=== PATIENT | female | born 1975 | race American Indian/Alaskan Native ===

== ENCOUNTER 2019-07-20 09:17 | Emergency (ER) | payer SELFPAY ==
--- NOTE | 2019-07-20 10:25 | Emergency Department Report ---
ED Shortness of Breath HPI - General Chief Complaint: Back Pain/Injury Stated Complaint: PAIN IN CALVES/COUGHING Time Seen by Provider: 07/20/19 10:09 Source: patient Mode of arrival: Ambulatory Limitations: No Limitations - History of Present Illness Initial Comments: 43-year-old -Welsh female with history of PE and hypertension complains of cough 1 month and lower leg pain and shortness of breath for the past 3-4 days. Patient denies any recent long travel, but admits to smoking and oral contraceptives. She states the shortness of breath worsens with ambulation and lying down. Leg pain also worsens with ambulation. She denies any chest pain, but does admit to painful breathing. MD Complaint: shortness of breath, cough -: Sudden, days(s) Quality: sharp Consistency: intermittent Improves With: rest Worsens With: lying flat, exertion Known History Of: DVT Treatments Prior to Arrival: none - Related Data Home Oxygen Therapy: No Allergies Allergy/AdvReac Type Severity Reaction Status Date / Time No Known Allergies Allergy Unverified 07/20/19 09:20 ED Review of Systems ROS: Stated complaint: PAIN IN CALVES/COUGHING Other details as noted in HPI Constitutional: denies: chills, fever ENT: denies: throat pain, congestion Respiratory: cough, orthopnea, shortness of breath Cardiovascular: dyspnea on exertion, orthopnea. denies: chest pain, palpitations, edema, syncope Endocrine: denies: excessive sweating Gastrointestinal: denies: abdominal pain, nausea, vomiting Musculoskeletal: denies: back pain Skin: denies: rash, lesions Neurological: denies: headache, weakness ED Past Medical Hx - Past Medical History Previous Medical History?: Yes Hx Hypertension: Yes Hx Pulmonary Embolism: Yes - Surgical History Past Surgical History?: Yes Additional Surgical History: C section - Social History Smoking Status: Current Every Day Smoker Substance Use Type: Alcohol ED Physical Exam - General Limitations: No Limitations General appearance: alert, in no apparent distress - Head Head exam: Present: atraumatic, normocephalic - Eye Eye exam: Present: normal appearance - ENT ENT exam: Present: mucous membranes moist - Neck Neck exam: Present: normal inspection - Respiratory Respiratory exam: Present: normal lung sounds bilaterally. Absent: respiratory distress, wheezes, rales, rhonchi, chest wall tenderness - Cardiovascular Cardiovascular Exam: Present: regular rate, normal rhythm, normal heart sounds. Absent: systolic murmur, diastolic murmur, rubs, gallop - GI/Abdominal GI/Abdominal exam: Present: soft, normal bowel sounds - Extremities Exam Extremities exam: Present: normal inspection, full ROM, calf tenderness (mild bilateral, left worse than right ). Absent: pedal edema, joint swelling - Back Exam Back exam: Present: normal inspection - Neurological Exam Neurological exam: Present: alert, oriented X3 - Psychiatric Psychiatric exam: Present: normal affect, normal mood - Skin Skin exam: Present: warm, dry, intact, normal color. Absent: rash ED Course Vital Signs 07/20/19 07/20/19 07/20/19 09:23 11:34 13:39 Temperature 97.8 F Pulse Rate 71 66 85 Respiratory 18 17 18 Rate Blood Pressure 192/108 Blood Pressure 160/97 152/88 [Left] O2 Sat by Pulse 100 98 100 Oximetry ED Medical Decision Making - Lab Data Result diagrams: 07/20/19 10:34 07/20/19 10:34 Lab Results 07/20/19 07/20/19 07/20/19 Range/Units 10:34 10:34 10:34 WBC 3.5 L (4.5-11.0) K/mm3 RBC 4.04 (3.65-5.03) M/mm3 Hgb 13.0 (10.1-14.3) gm/dl Hct 37.9 (30.3-42.9) % MCV 94 (79-97) fl MCH 32 (28-32) pg MCHC 34 (30-34) % RDW 14.6 (13.2-15.2) % Plt Count 242 (140-440) K/mm3 Lymph % (Auto) 39.7 H (13.4-35.0) % [place] % (Auto) 7.2 (0.0-7.3) % Eos % (Auto) 2.5 (0.0-4.3) % Baso % (Auto) 1.7 (0.0-1.8) % Lymph # 1.4 (1.2-5.4) K/mm3 [place] # 0.3 (0.0-0.8) K/mm3 Eos # 0.1 (0.0-0.4) K/mm3 Baso # 0.1 (0.0-0.1) K/mm3 Seg Neutrophils % 48.9 (40.0-70.0) % Seg Neutrophils # 1.7 L (1.8-7.7) K/mm3 D-Dimer 240.33 H (0-234) ng/mlDDU Sodium 142 (137-145) mmol/L Potassium 3.6 (3.6-5.0) mmol/L Chloride 103.6 (98-107) mmol/L Carbon Dioxide 26 (22-30) mmol/L Anion Gap 16 mmol/L BUN 10 (7-17) mg/dL Creatinine 0.6 L (0.7-1.2) mg/dL Estimated GFR > 60 ml/min BUN/Creatinine Ratio 17 % Glucose 75 (65-100) mg/dL Calcium 9.0 (8.4-10.2) mg/dL Total Bilirubin 0.20 (0.1-1.2) mg/dL AST 17 (5-40) units/L ALT 10 (7-56) units/L Alkaline Phosphatase 78 (35-129) units/L Troponin T < 0.010 (0.00-0.029) ng/mL Total Protein 7.1 (6.3-8.2) g/dL Albumin 4.1 (3.9-5) g/dL Albumin/Globulin Ratio 1.4 % Urine HCG, Qual (Negative) 07/20/19 Range/Units 11:32 WBC (4.5-11.0) K/mm3 RBC (3.65-5.03) M/mm3 Hgb (10.1-14.3) gm/dl Hct (30.3-42.9) % MCV (79-97) fl MCH (28-32) pg MCHC (30-34) % RDW (13.2-15.2) % Plt Count (140-440) K/mm3 Lymph % (Auto) (13.4-35.0) % [place] % (Auto) (0.0-7.3) % Eos % (Auto) (0.0-4.3) % Baso % (Auto) (0.0-1.8) % Lymph # (1.2-5.4) K/mm3 [place] # (0.0-0.8) K/mm3 Eos # (0.0-0.4) K/mm3 Baso # (0.0-0.1) K/mm3 Seg Neutrophils % (40.0-70.0) % Seg Neutrophils # (1.8-7.7) K/mm3 D-Dimer (0-234) ng/mlDDU Sodium (137-145) mmol/L Potassium (3.6-5.0) mmol/L Chloride (98-107) mmol/L Carbon Dioxide (22-30) mmol/L Anion Gap mmol/L BUN (7-17) mg/dL Creatinine (0.7-1.2) mg/dL Estimated GFR ml/min BUN/Creatinine Ratio % Glucose (65-100) mg/dL Calcium (8.4-10.2) mg/dL Total Bilirubin (0.1-1.2) mg/dL AST (5-40) units/L ALT (7-56) units/L Alkaline Phosphatase (35-129) units/L Troponin T (0.00-0.029) ng/mL Total Protein (6.3-8.2) g/dL Albumin (3.9-5) g/dL Albumin/Globulin Ratio % Urine HCG, Qual Negative (Negative) - Radiology Data Radiology results: report reviewed CTA CHEST WITH CONTRAST INDICATION : Shortness of breath for one week. TECHNIQUE: Axial imaging performed through the chest, with contrast bolus timing set to maximize opacification of the pulmonary arteries. Sagittal and coronal reformatted images. 3-plane MIP reformatted images were obtained. All CT scans at this location are performed using CT dose reduction for ALARA by means of automated exposure control. 100 mL of intravenous contrast administered. COMPARISON: Chest x-ray performed the same day FINDINGS: Bolus: Contrast bolus timing is adequate. PTE: No filling defect is present to suggest PTE. Mediastinum: Heart and great vessels appear normal. No pathologic mediastinal adenopathy. Lungs: The lungs are clear. Minor subpleural scarring or atelectasis is noted in the posterior right lower lobe. No underlying parenchymal lung disease. No pleural effusion or pneumothorax. Bones: No significant abnormality. Upper abdomen: Limited imaging of the upper abdomen shows nothing acute. IMPRESSION: No evidence for pulmonary embolus. Unremarkable CT chest. DUPLEX DOPPLER BILATERAL LOWER EXTREMITY VEINS INDICATION: Bilateral leg pain FINDINGS: There is no thrombus within the deep veins of either lower extremity from the common femoral to the calf veins. There is normal compression and augmentation on spectral analysis. IMPRESSION: No sonographic evidence for DVT in either lower extremity. CHEST 2 VIEWS INDICATION: shortness of breath, cough. COMPARISON: None FINDINGS: Support devices: None. Heart: Within normal limits. Lungs/pleura: No acute air space or interstitial disease. No pneumothorax. Additional findings: None. IMPRESSION: No acute findings. - Medical Decision Making 43-year-old -Wel[place] female patient here today with complaints of cough 1 month in onset of bilateral lower leg pain and mild shortness of breath. Patient has history of PE and DVT. Positive d-dimer today, however CTA of chest and ultrasound of legs showed no thrombus or embolism. Patient's vitals have remained within normal limits during her stay here in the ED. Recommend follow- up primary care. Strict return precautions were discussed in detail with patient who states understanding. Critical care attestation.: If time is entered above; I have spent that time in minutes in the direct care of this critically ill patient, excluding procedure time. ED Disposition Clinical Impression: Shortness of breath on exertion, Bilateral lower extremity pain Disposition: DC- TO HOME OR SELFCARE Is pt being admited?: No Condition: Stable Instructions: Dyspnea (ED) Referrals: [facility] [Provider Group] - 3-5 Days
[2019-07-20 11:01] LABS: Basophils # (Auto) 0.1 K/mm3 (0.0-0.1); Basophils % (Auto) 1.7 % (0.0-1.8); Eosinophils # (Auto) 0.1 K/mm3 (0.0-0.4); Eosinophils % (Auto) 2.5 % (0.0-4.3); Hematocrit 37.9 % (30.3-42.9); Lymphocytes # (Auto) 1.4 K/mm3 (1.2-5.4); Lymphocytes % (Auto) 39.7 % (13.4-35.0); Mean Corpuscular HGB Conc 34 % (30-34); Mean Corpuscular Volume 94 fl (79-97); Monocytes # (Auto) 0.3 K/mm3 (0.0-0.8); Monocytes % (Auto) 7.2 % (0.0-7.3); Platelet Count 242 K/mm3 (140-440); Red Blood Count 4.04 M/mm3 (3.65-5.03); Red Cell Distribution Width 14.6 % (13.2-15.2)
[2019-07-20 11:23] LABS: Alanine Aminotransferase 10 units/L (7-56); Albumin 4.1 g/dL (3.9-5); BUN/Creatinine Ratio 17; Blood Urea Nitrogen 10 mg/dL (7-17); Hemolysis Index 3
[2019-07-20 12:17] LABS: HCG Qualitative,Urine Negative (Negative)
--- NOTE | 2019-07-20 12:55 | XRay Report ---
CHEST 2 VIEWS INDICATION: shortness of breath, cough. COMPARISON: None FINDINGS: Support devices: None. Heart: Within normal limits. Lungs/pleura: No acute air space or interstitial disease. No pneumothorax. Additional findings: None. IMPRESSION: No acute findings. Signer Name: Everardo Valles Jr, MD Signed: 07/20/2019 12:50 PM Workstation Name: [id number]
--- NOTE | 2019-07-20 13:45 | Vascular Lab Report ---
DUPLEX DOPPLER BILATERAL LOWER EXTREMITY VEINS INDICATION: Bilateral leg pain FINDINGS: There is no thrombus within the deep veins of either lower extremity from the common femoral to the c thaddeus veins. There is normal compression and augmentation on spectral analysis. IMPRESSION: No sonographic evidence for DVT in either lower extremity. Signer Name: Norman Nunez MD Signed: 07/20/2019 1:41 PM Workstation Name: [id number]
[2019-07-20] MEDS ORDERED: oxyCODONE /ACETAMINOPHEN 5-325MG TAB PO ONE (14:17)
[2019-07-20] MEDS ORDERED: oxyCODONE /ACETAMINOPHEN 5-325MG TAB ONE ×2 (14:26→14:38)
--- NOTE | 2019-07-20 14:37 | Cat Scan Report ---
CTA CHEST WITH CONTRAST INDICATION : Shortness of breath for one week. TECHNIQUE: Axial imaging performed through the chest, with contrast bolus timing set to maximize opa cification of the pulmonary arteries. Sagittal and coronal reformatted images. 3-plane MIP reformatte d images were obtained. All CT scans at this location are performed using CT dose reduction for ALAR A by means of automated exposure control. 100 mL of intravenous contrast administered. COMPARISON: Chest x-ray performed the same day FINDINGS: Bolus: Contrast bolus timing is adequate. PTE: No filling defect is present to suggest PTE. Mediastinum: Heart and great vessels appear normal. No pathologic mediastinal adenopathy. Lungs: The lungs are clear. Minor subpleural scarring or atelectasis is noted in the posterior right lower lobe. No underlying parenchymal lung disease. No pleural effusion or pneumothorax. Bones: No significant abnormality. Upper abdomen: Limited imaging of the upper abdomen shows nothing acute. IMPRESSION: No evidence for pulmonary embolus. Unremarkable CT chest. Signer Name: Everardo Valles Jr, MD Signed: 07/20/2019 2:32 PM Workstation Name: [id number]
[2019-07-20 16:20] VITALS: BP 145/72
== END 2019-07-20 15:30 | disposition home or self-care (01) ==
LOC: ED 09:17
DX: R06.02 Shortness of breath (principal); R05 Cough; M79.605 Pain in left leg; M79.604 Pain in right leg; I10 Essential (primary) hypertension; F17.200 Nicotine dependence, unspecified, uncomplicated
CPT/HCPCS: 36415; 71046; 71275; 80053; 81025; 84484; 85025; 85379; 93005; 93010; 93970; 99284; Q9967